=== PATIENT | female | born 1980 | race Caucasian/White ===

== ENCOUNTER 2019-05-10 17:48 | Emergency (ER) | payer OTHER ==
[~2019-05-10] VITALS: Ht 170.2 cm; Wt 60.0 kg
[~2019-05-10 17:48] MED LIST: CYCL-394 PO; NAPR-56 PO
[2019-05-10] MEDS ORDERED: pantoprazole IV 80 MG in normal saline 100ml IV soln 100 ML IV ONE (19:20)
[2019-05-10] MEDS ORDERED: normal saline 1000ML IV soln IV ONE (19:20)
[2019-05-10] MEDS ORDERED: pantoprazole 40MG/NS 100ML BAG 100 ML IV ONE (19:25)
[2019-05-10] MEDS ORDERED: ondansetron/PF 4mg/2ml inj IV ONE (19:25)
[2019-05-10] MEDS ORDERED: pantoprazole 40 MG vial IV ONE (19:30)
--- NOTE | 2019-05-10 19:41 | NUR ---
DR. WILLIS AT BEDSIDE FOR RECTAL EXAM, WITNESSED BY THIS IMPORTER EXPORTER. PT AGREES TO EXAM.
[2019-05-10 19:52] LABS: BASOPHILS % (AUTO) 0.2 % (0-1); EOSINOPHILS # (AUTO) 0.1 X10'3 (0-0.9); HEMATOCRIT 36.8 % (35.0-45.0); HEMOGLOBIN 12.5 g/dl (12.0-16.0); LYMPHOCYTES # (AUTO) 2.3 X10'3 (1.1-4.8); MEAN CORPUSCULAR HEMOGLOBIN 30.7 PG (27.0-31.0); MEAN CORPUSCULAR VOLUME 90.5 FL (78-98); MONOCYTES # (AUTO) 0.6 X10'3 (0-0.9); MONOCYTES % (AUTO) 8.9 % (2-12); NEUTROPHILS % (AUTO) 56.9 % (42-75); PLATELET COUNT 352 X10'3 (140-440); RED BLOOD COUNT 4.07 X10'6 (4.20-5.60); RED CELL DISTRIBUTION WIDTH 13.7 % (11.5-14.5); WHITE BLOOD COUNT 7.1 X10'3 (4.5-11.0)
[2019-05-10 20:06] LABS: ALANINE AMINOTRANSFERASE 62 U/L (12-78); ALBUMIN 3.7 G/DL (3.4-5.0); ALBUMIN/GLOBULIN RATIO 1.2 (1.1-1.5); ALKALINE PHOSPHATASE 52 IU/L (46-116); ANION GAP 9 (8-16); ASPARTATE AMINO TRANSFERASE 31 U/L (10-37); BILIRUBIN,TOTAL 0.2 MG/DL (0.1-1.0); BLOOD UREA NITROGEN 10 MG/DL (7-18); CALCIUM 8.4 MG/DL (8.5-10.1); CHLORIDE 104 MMOL/L (99-107); CREATININE 0.77 MG/DL (0.40-0.90); GLUCOSE 101 MG/DL (70-104); POTASSIUM 3.6 MMOL/L (3.5-5.1); SODIUM 140 MMOL/L (135-145); TOTAL CARBON DIOXIDE 27.4 MMOL/L (24-32); TOTAL PROTEIN 6.7 G/DL (6.4-8.2); eGFR 85 ML/MIN
[2019-05-10] MEDS ORDERED: ONDA4TAB6 PO (21:17)
[2019-05-10] MEDS ORDERED: AMOX-419 PO (21:17)
[2019-05-10 21:29] VITALS: BP 112/75
[2019-05-10 22:11] LABS: OCCULT BLOOD STOOL NEGATIVE (Neg)
== END 2019-05-10 21:30 | disposition home or self-care (01) ==
LOC: ER 17:49
DX: K52.9 Noninfective gastroenteritis and colitis, unspecified (principal); R11.10 Vomiting, unspecified; R10.33 Periumbilical pain
CPT/HCPCS: 36415; 71045; 74176; 80053; 82140; 82272; 85025; 85610; 86885; 86900; 86901; 93005; 96361; 96374; 96375; 99284; C9113; J2405; J7030

== ENCOUNTER 2019-07-08 04:54 | Emergency (ER) | payer MEDICAID, OTHER ==
[~2019-07-08] VITALS: Ht 170.2 cm; Wt 65.9 kg
[~2019-07-08 04:54] MED LIST changes: +ONDA4TAB6 PO
[2019-07-08 05:05] VITALS: BP 108/71
[2019-07-08] MEDS ORDERED: triamcinolone acetonide 40mg/ml inj IM ONE (05:20)
[2019-07-08] MEDS ORDERED: TRAM50TA2 PO (12:20)
[2019-07-08] MEDS ORDERED: PRED20TA PO (12:20)
== END 2019-07-08 05:45 | disposition home or self-care (01) ==
LOC: ER 04:55
DX: G56.01 Carpal tunnel syndrome, right upper limb (principal)
CPT/HCPCS: 20605; 29125; 99283

== ENCOUNTER 2019-07-08 10:41 | Emergency (ER) | payer MEDICAID, OTHER ==
[~2019-07-08] VITALS: Ht 170.2 cm; Wt 59.1 kg
[2019-07-08 10:43] VITALS: BP 130/59
[2019-07-08] MEDS ORDERED: traMADol 50MG tablet PO ONE (11:55)
[2019-07-08] MEDS ORDERED: PRED20TA PO (12:20)
[2019-07-08] MEDS ORDERED: TRAM50TA2 PO (12:20)
== END 2019-07-08 13:38 | disposition home or self-care (01) ==
LOC: ER 10:41
DX: G56.01 Carpal tunnel syndrome, right upper limb (principal); Z79.899 Other long term (current) drug therapy
CPT/HCPCS: 29125; 99283